=== PATIENT | male | born 1970 | race Two or more races ===

== ENCOUNTER 2023-01-06 09:30 | Emergency (ER) | payer MEDICAID ==
[~2023-01-06] VITALS: Ht 177.8 cm; Wt 87.5 kg
[2023-01-06] MEDS ORDERED: MORPHINE SULFATE INJ 2 MG/ML DISP.SYRIN IV ONE (10:00)
[2023-01-06] MEDS ORDERED: IV NS 0.9% 1,000 ML BAG IV ONE (10:00)
[2023-01-06] MEDS ORDERED: MORPHINE SULFATE INJ 4 MG/ML DISP.SYRIN ONE (10:01)
[2023-01-06] MEDS ORDERED: ACET-868 PO (10:25)
[2023-01-06] MEDS ORDERED: IBUP-23 PO (10:25)
[2023-01-06] MEDS ORDERED: TRAM50TA2 PO (10:25)
[2023-01-06 10:38] LABS: BASOPHILS # (AUTO) 0.1 K/uL (0.0-0.2); BASOPHILS % (AUTO) 1.5 % (0.0-2.0); EOSINOPHILS # (AUTO) 0.1 K/uL (0.0-0.7); EOSINOPHILS % (AUTO) 1.6 % (0.0-6.0); HEMATOCRIT 26 % (39-51); HEMOGLOBIN 8.2 g/dL (13.5-17.5); LYMPHOCYTES # (AUTO) 0.7 K/uL (0.8-4.8); LYMPHOCYTES % (AUTO) 9.4 % (20.0-44.0); MEAN CORPUSCULAR HEMOGLOBIN 26 PG (26.0-33.0); MEAN CORPUSCULAR HGB CONC 32 g/dl (31.0-36.0); MEAN CORPUSCULAR VOLUME 80 fL (80-96); MONOCYTES # (AUTO) 0.4 K/uL (0.1-1.30); MONOCYTES % (AUTO) 5.9 % (2.0-12.0); NEUTROPHILS % (AUTO) 81.6 % (43.0-81.0); PLATELET COUNT (AUTO) 257 K/uL (150-450); RED BLOOD CELL COUNT(AUTO) 3.22 MIL/uL (4.5-6.0); WHITE BLOOD COUNT (AUTO) 7.3 K/uL (4.3-11.0)
[2023-01-06 10:42] LABS: CALCIUM, SERUM 9.3 mg/dL (8.5-10.1); POTASSIUM 4.1 mmol/L (3.5-5.1)
[2023-01-06 10:48] LABS: ALBUMIN 3.4 g/dL (3.4-5.0); BILIRUBIN,DIRECT 0.1 mg/dL (0.0-0.2); BILIRUBIN,TOTAL 0.4 mg/dL (0.2-1.0); TOTAL PROTEIN, SERUM 7.2 g/dL (6.4-8.2)
[2023-01-06 10:51] LABS: INR 1.03 (0.91-1.10); PARTIAL THROMBOPLASTIN TIME 28.2 SEC (24.3-34.3); PROTHROMBIN TIME 10.9 SECS (9.2-11.1)
[2023-01-06] MEDS ORDERED: IOHEXOL-350 100 ML VIAL IV ONE (11:01)
[2023-01-06] MEDS ORDERED: CT SWABBABLE VALVE TRANS SET 1 EA INFUS.SET MC ONE (11:01)
[2023-01-06] MEDS ORDERED: IV NS 0.9% 250 ML IV ONE (11:01)
[2023-01-06 14:12] VITALS: BP 118/60; TEMP 98.3; O2SAT 99
== END 2023-01-06 14:13 | disposition home or self-care (01) ==
LOC: ER 09:30
DX: K62.5 Hemorrhage of anus and rectum (principal); Z85.048 Personal history of other malignant neoplasm of rectum, rectosigmoid junction, and anus; Z20.822 Contact with and (suspected) exposure to COVID-19
CPT/HCPCS: 99285; 74177; 96374; 96361; 87426; 84145; 85025; 80048; 87040 ×2; 83605; 80076; 36415; 85730; J2270; J7030; J7050; Q9967; C9803